=== PATIENT | female | born 1970 | race Caucasian/White ===

== ENCOUNTER 2023-12-25 09:34 | Emergency (ER) | payer OTHER, BC, MEDICAID, SELFPAY ==
[2023-12-25 10:06] VITALS: BP 154/80; PULSE 71; RESP 12; TEMP 36.7; O2SAT 96; BMI 24.2
--- NOTE | 2023-12-25 10:18 | XRR_ITS ---
PROCEDURE INFORMATION: Exam: XR Right Wrist Exam date and time: 12/25/2023 10:53 AM Age: 53 years old Clinical indication: Injury or trauma; Other: RT wrist pain post fall TECHNIQUE: Imaging protocol: Radiologic exam of the right wrist. Views: 3 or more views. COMPARISON: No relevant prior studies available. FINDINGS: Bones/joints: Negative for acute bone abnormality. Soft tissues: Normal. XR/XR wrist RT min 3V* [id number] IMPRESSION: No acute findings.
--- NOTE | 2023-12-25 10:18 | XRR_ITS ---
PROCEDURE INFORMATION: Exam: XR Left Elbow Exam date and time: 12/25/2023 10:57 AM Age: 53 years old Clinical indication: Injury or trauma; Other: Lt upper ext pain; Patient HX: RT wrist pain post fall TECHNIQUE: Imaging protocol: Radiologic exam of the left elbow. Views: 3 or more views. COMPARISON: No relevant prior studies available. FINDINGS: Bones/joints: There is a linear interarticular fracture with a longitudinal and transverse components in the radial head. Soft tissues: Is there is joint space effusion with displacement of the anterior and posterior fat pads. XR/XR elbow LT min 3V* 05200 IMPRESSION: 1. Interarticular hairline fracture of the radial head. 2. Displaced fat pads
--- NOTE | 2023-12-25 10:18 | XRR_ITS ---
PROCEDURE INFORMATION: Exam: XR Sacrum and Coccyx, 2 or More Views Exam date and time: 12/25/2023 11:00 AM Age: 53 years old Clinical indication: Injury or trauma; Work related; Other: Tailbone pain post fall TECHNIQUE: Imaging protocol: XR of the sacrum and coccyx, 2 or more views. COMPARISON: No relevant prior studies available. FINDINGS: Bones/joints: Normal. No acute fracture. Soft tissues: Normal. XR/XR coccyx 2V [id number] IMPRESSION: No acute findings.
[2023-12-25 10:50] VITALS: BP 159/83; PULSE 64; RESP 18; O2SAT 97
--- NOTE | 2023-12-25 11:18 | PC.PHAR ---
pt states takes no prescription medications states only takes the otc medications entered
[2023-12-25 11:39] VITALS: PULSE 70; RESP 16; O2SAT 95
--- NOTE | 2023-12-25 12:50 | ED_ITS ---
HPI - Fall General: Chief Complaint: Fall Stated Complaint: fall Time Seen by Provider: 12/25/23 10:25 History of Present Illness: 53-year-old female presents emergency de partment with complaints of pain to her right wrist left elbow and tailbone after rollerskating last night. She states she had an accidental fall backwards on a outstretched hand and has 4 out of 10 aching left elbow pain that is worse if she attempts to supinate her left arm. She also has swelling to her right wrist which is tender to palpation she states that pain is a 4 out of 10 also. Patient also complains of pain to her tailbone when attempting to sit down and is concerned that she might have a fractured tailbone. She denies back or neck or head pain. She denies loss of consciousness. Review of Systems General: Reports: 10 or more systems reviewed and unremarkable except in HPI and below Musc: Reports: extremity pain, extremity swelling, joint pain, joint swelling and deformity Physical Exam Narrative: EXAM NARRATIVE: Constitutional: the patient appears well nourished and with normal development. Vital signs reviewed as documented. HENMT: Normocephalic, atraumatic. External ears normal appearance without drainage. Nose without drainage, normal appearance. Mucus membranes moist. Neck is supple, No jugular venous distension, trachea is midline, no appreciable carotid bruits. No lymphadenopathy. No meningeal signs. Flexion, extension and lateral rotation is without pain. Eyes: Pupils are equal, round, reactive to light and accommodation. No scleral icterus. Extra-ocular movement are intact. Thorax is symmetrical and with equal rise and fall with respirations. Resp: Lungs are clear to auscultation. No wheezes, rales, crackles or ronchi at present. Cardio: Regular rate and rhythm. Positive S1, S2. No appreciable murmurs, rubs or gallops. GI: Abdominal exam reveals normal bowel sounds to all quadrants. No organomegaly. No obvious palpable masses noted. No hepatomegally appreciated. Soft, non-tender to palpation. Extremity: Right wrist slightly edematous, tender to palpation. Left elbow tender to palpation at/about the radial head. Both femoral and pedal pulses are 2+ and equal bilaterally. Moves all extremities well, sensation in all extremities. Neuro: Alert and oriented x4, person, place, time and situation. Cranial nerves II through XII are grossly intact, there is no focal neurological deficits that I can appreciate at present. Motor strength in the upper and lower extremities are equal and bilateral 5/5. Psych: Cooperative, calm, normal thought process, appropriate judgment. Skin: No lesions, rashes. No gross abnormalities noted. Back: Symmetrical, no obvious deformity, No CVA tenderness Course ED course: Procedure note: #1 I reviewed the radiographic examination and determined the need for fracture stabilization via splint. A left sugar tong splint was utilized. The splint was ordered and placed by the nursing staff, under the direct supervision of myself (ER Physician). The patient's neurovascular status was evaluated and was intact before and after the application of the splint. Capillary refill was less than 3 seconds before and after the application. The patient was splinted in the most appropriate anatomical and functional position at that time. Anticipatory guidance, return precautions and red flag precautions were provided to the patient and support person. The patient/support person was advised to contact the patient's primary care provider or Orthopedic provider to make a follow-up appointment for additional evaluation and treatment within the next 3-5 days. Procedure note #2 I reviewed the radiographic examination and determined the need for stabilization via splint. A right Velcro wrist splint was utilized. The splint was ordered and placed by the nursing staff, under the direct supervision of myself (ER Physician). The patient's neurovascular status was evaluated and was intact before and after the application of the splint. Capillary refill was less than 3 seconds before and after the application. The patient was splinted and the most appropriate anatomical and functional position at that time. Anticipatory guidance, return precautions and red flag precautions were provided to the patient and support person. The patient/support person was advised to contact the patient's primary care provider or Orthopedic provider to make a follow-up appointment for additional evaluation and treatment within the next 3-5 days. Procedure note: Left shoulder sling I reviewed the radiographic examination and determined the need for stabilization via upper extremity sling. A soft shoulder sling was utilized. The sling was ordered and placed by the nursing staff, under the direct supervision of myself (ER Physician. The patient's neurovascular status was evaluated and was intact before and after the application of the sling/splint. Capillary refill was less than 3 seconds before and after the application. The patient was provided a sling and the most appropriate anatomical and functional position at that time. Anticipatory guidance, return precautions and red flag precautions were provided to the patient and support person. The patient/support person was advised to contact the patient's primary care provider or Orthopedic provider to make a follow-up appointment for additional evaluation and treatment within the next 3-5 days. Vital Signs: Vital signs: Vital Signs Temperature 98.1 F 12/25/23 10:06 Pulse Rate 70 12/25/23 11:39 Respiratory Rate 16 12/25/23 11:39 Blood Pressure 159/83 12/25/23 10:50 Pulse Oximetry 95 12/25/23 11:39 Oxygen Delivery Me thod Room Air 12/25/23 11:39 MDM - Fall Medical Decision Making Physical exam completed and documented I will obtain radiographic examination of the patient's left elbow, right wrist and coccyx area. I will provide her p.o. pain medication while here in the emergency department. And a written prescription as well as recommended follow-up with orthopedic physician Lab Data Radiology Impressions Coccyx X-Ray 12/25/23 10:18 IMPRESSION: No acute findings. Elbow X-Ray 12/25/23 10:18 IMPRESSION: 1. Interarticular hairline fracture of the radial head. 2. Displaced fat pads Wrist X-Ray 12/25/23 10:18 IMPRESSION: No acute findings. All radiology interpretation(s) finalized by discharge Discharge Plan Discharge Patient Disposition: Home Clinical Impression: Contusion of right wrist, initial encounter Fracture of head of left radius Qualifiers: Encounter type: initial encounter Fracture type: closed Fracture alignment: nondisplaced Qualified Code(s): S52.125A - Nondisplaced fracture of head of left radius, initial encounter for closed fracture Coccygeal contusion Qualifiers: Encounter type: initial encounter Qualified Code(s): S30.0XXA - Contusion of lower back and pelvis, initial encounter Condition: Stable Prescriptions: New cyclobenzaprine 10 mg tablet 10 mg PO Q8H Qty: 14 0RF hydrocodone-acetaminophen 5-325 mg tablet 1 tab PO Q8H PRN (Reason: pain) Qty: 14 0RF No Action Zyrtec 10 mg Tablet 10 mg PO QAM Calcium 500 500 mg calcium (1,250 mg) Tablet 500 mg PO QAM ibuprofen 200 mg Tablet 800 mg PO Q6H PRN (Reason: Pain) vitamin B complex Tablet 1 tab PO DAILY Flonase 50 mcg/actuation [place],Suspension 1 spray INTRANASAL QAM Rx Instructions: administer into each nostril Vitamin D3 25 mcg (1,000 unit) Tablet 25 mcg PO QAM Probiotic Blend 2 billion cell-50 mg Capsule 1 cap PO QAM Rx Instructions: give with meal/snack magnesium oxide 400 mg magnesium Tablet 400 mg PO QAM Discharge Orders: Discharge ED (Routine); Ordered 12/25/23 Ordered By: Boy Coleman Referrals: Rigo Luna FNP [Primary Care Provider] - Narciso Bal DO [Physician] - Discharge Diet: Usual diet Discharge Activity: Resume usual activity Patient Instructions: Opioid Safety, Pain Management, RICE Therapy Activity Restrictions/Additional Instructions: Activity Restrictions/Additional Instructions: Thank you for choosing [facility] for your healthcare needs today. Please realize that you were seen in the Emergency Department and that we are providing you with an emergency medical screening exam and this may not be a complete and all inclusive of all the testing and or medical work-up that you may need to determine your ailment or severity of your illness. It is very important that you follow-up as instructed with your Primary care provider or Specialist for additional evaluation and to discuss your medical treatment plan. You may return to the Emergency Department should you have concerns or if your condition changes or worsens in any way. Coding Level of Care Code ED [facility] for Shahrzad Hughes
== END 2023-12-25 13:21 | disposition home or self-care (01) ==
PROVIDERS: Emergency Provider Internal Medicine; PCP Nurse Practitioner
DX: S60.211A Contusion of right wrist, initial encounter (principal); S52.125A Nondisplaced fracture of head of left radius, initial encounter for closed fracture; S30.0XXA Contusion of lower back and pelvis, initial encounter; W18.39XA Other fall on same level, initial encounter; Y93.51 Activity, roller skating (inline) and skateboarding
CPT/HCPCS: 72220; 73080; 73110; 99284